=== PATIENT | male | born 1945 | race Asian ===

== ENCOUNTER 2019-09-28 14:04 | Emergency (ER) | payer OTHER ==
[~2019-09-28] VITALS: Ht 172.7 cm; Wt 62.6 kg
[2019-09-28 14:23] VITALS: BP 109/70
[2019-09-28] MEDS ORDERED: TETANUS-DIPTH-ACEL PERTUSSIS 0.5ML SYRG IM ONE (14:30)
== END 2019-09-28 17:09 | disposition left against medical advice (07) ==
LOC: ER 14:06
DX: S61.551A Open bite of right wrist, initial encounter (principal); Z53.21 Procedure and treatment not carried out due to patient leaving prior to being seen by health care provider; W54.0XXA Bitten by dog, initial encounter; Y93.89 Activity, other specified; Y92.89 Other specified places as the place of occurrence of the external cause; Y99.8 Other external cause status
CPT/HCPCS: 90715